=== PATIENT | male | born 1960 | race Two or more races ===

== ENCOUNTER 2024-07-24 20:37 | Emergency (ER) | payer OTHER ==
[~2024-07-24] VITALS: Ht 165.1 cm; Wt 86.2 kg
[2024-07-24] MEDS ORDERED: INSULIN SYRING1 EA29 (20:51)
[2024-07-24] MEDS ORDERED: COZAAR25 MG (20:51)
[2024-07-24 21:16] LABS: HEMATOCRIT 41.5 % (39.0-48.0); HEMOGLOBIN 14.1 g/dL (13-16.00); MEAN CELL VOLUME 88.3 fL (80.0-100.00); MEAN CORPUSCULAR HGB CONC 33.9 g/dl (32.0-36.0); PLATELET COUNT 300 K/uL (150-450); RED BLOOD COUNT 4.69 M/uL (4.00-6.00); RED CELL DISTRIBUTION WIDTH 13.2 % (11.5-14.5)
[2024-07-24 21:57] LABS: CALCIUM 9.4 mg/dL (8.5-10.1); CREATININE SERUM 1.07 mg/dL (0.70-1.30); GFR 70.03; POTASSIUM 4.22 mEq/L (3.5-5.1)
== END 2024-07-24 22:51 | disposition home or self-care (01) ==
LOC: ER 20:37
PROVIDERS: Emergency Medicine
DX: R42 Dizziness and giddiness (principal); E11.9 Type 2 diabetes mellitus without complications; Z79.4 Long term (current) use of insulin